=== PATIENT | female | born 1960 | race Caucasian/White ===

== ENCOUNTER 2023-03-17 16:25 | Emergency (ER) | payer OTHER ==
[2023-03-17] MEDS ORDERED: Lidocaine 1% 5 ML VIAL INJECT ONE (17:00)
[2023-03-17] MEDS ORDERED: Bacitracin Oint 1 GM U/D Packet TOP ONE (17:00)
[2023-03-17] MEDS ORDERED: Diphtheria,Pertussis(Acell),Tetanus Vaccine 0.5 ML Syringe IM ONE (17:00)
== END 2023-03-17 17:51 | disposition home or self-care (01) ==
LOC: JP.ED 16:25
DX: S61.210A Laceration without foreign body of right index finger without damage to nail, initial encounter (principal); W26.8XXA Contact with other sharp object(s), not elsewhere classified, initial encounter; Y92.838 Other recreation area as the place of occurrence of the external cause
CPT/HCPCS: 12001; 99282